=== PATIENT | male | born 1960 | race Caucasian/White ===

== ENCOUNTER 2023-11-22 10:00 | Outpatient (AMB) | payer OTHER, SELFPAY ==
--- NOTE | 2023-11-22 10:20 | MHC.OFFVIS ---
Intake Vital Signs 11/22/23 10:27 Height 5 ft 9 in Weight 195 lb 2 oz BMI 28.8 BP 111/70 Blood Pressure Location Lt brachial Position Sitting Respiration 18 Pulse 73 Pulse Source Pulse Oximeter Pulse Oximetry (%) 96 Oxygen Delivery Method Room Air Intake Visit Reasons: Chronic midline low back pain w/bilateral sciatica Allergies No Known Allergies Allergy (Verified 11/22/23 10:17) HPI HPI Comments History of Present Illness Details Wilbert is a very pleasant 63 year old male who presents to the office today, accompanied by his , for evaluation and management of his chronic lower back pain. Patient reports he has been suffering with lower back pain for greater than 4 years. Patient reports midline lumbar back pain, had most recent MRI in 2019. Was told he has lumbar spinal stenosis. Patient endorses pain into the thighs with walking, sitting, standing for extended periods of time. Pain today is rated as 8/10, constant. Patient denies red flag symptoms including new loss of bowel, bladder or saddle anesthesia. Patient has failed conservative therapy including at least one year of chiropractor, HEP, NSAIDs (prescribed Meloxicam), muscle relaxers, topical medications and prescribed opioid medication. He currently takes methocarbamol and percocet as needed. Patient reports that he previously was under treatment at [facility] where he had a couple epidural steroid injections that provided relief of his back and leg pain. the next step was an MRI but he states they never scheduled at. He found there office to be disorganized and he was lost to follow-up. In terms of muscle damage condition is described as aching, stabbing, sharp, shooting, tiring, exhausting. Pain is negatively impacting patient's enjoyment of life, general activity, mood, normal work, recreational activities, sleep and walking. Patient also complaining of chronic pain in his neck, he is status post anterior cervical fusion 2019. He also reports midline thoracic pain, he believes there is an old fracture in that area. Patient states he used to see the chiropractor for thoracic pain, was told that he had a rib that would dislocate and the chiropractor would reduce it. He has not been to the chiropractor recently. [facility] Medical History (Updated 11/22/23 @ 13:31 by Paris Londono, [employer], ASSOCIATE DIRECTOR OF SALES) Sciatica Hypertension COPD (chronic obstructive pulmonary disease) Moderate persistent asthma Cervical stenosis of spine Opioid use Chronic low back pain Surgical History (Updated 11/22/23 @ 11:07 by Paris Londoon, [employer], ASSOCIATE DIRECTOR OF SALES) History of cervical spinal surgery Review of Systems Const All systems reviewed & are unremarkable except as noted in HPI and below Physical Exam Vital Signs: Last Vital Signs Pulse 73 11/22/23 10:27 Resp 18 11/22/23 10:27 BP 111/70 11/22/23 10:27 Pulse Ox 96 11/22/23 10:27 Oxygen Delivery Method Room Air 11/22/23 10:27 BMI result Body Mass Index 28.8 General: awake, alert, oriented. Answers questions appropriately. Fully engaged in examination. Skin: warm, dry, intact HEENT: Normocephalic. Hearing intact. Cardiac: External chest normal in appearance. Respiratory: No cough, audible wheezing or stridor. Abdomen: without gross distension. MS: No obvious swelling or deformities. Able to stand on bilateral tiptoes and bilateral heels.? Able to transition from sit to stand unassisted. Ambulates with bilaterally normal heel strike and toe off BLE strength 5/5 ROM intact, increased pain with forward flexion. Facet loading positive SLR with and without dorsiflexion neg bilaterally Tender to palpation over T6-8 paraspinal muscles Tender to palpation over lumbar paraspinal muscles nontender over PSIS Neurological: Oriented to person, place, time and situation. Thought process intact. No gait abnormalities appreciated. Psychiatric: Appropriate mood and affect. Good judgment and insight. Assessment & Plan Assessment & Plan (1) Post laminectomy syndrome: Code(s): M96.1 - Postlaminectomy syndrome, not elsewhere classified (2) Lumbar spondylosis: Code(s): M47.816 - Spondylosis without myelopathy or radiculopathy, lumbar region (3) Thoracic back pain: Code(s): M54.6 - Pain in thoracic spine (4) Cervical spondylosis: Code(s): M47.812 - Spondylosis without myelopathy or radiculopathy, cervical region (5) Lumbar stenosis with neurogenic claudication: Code(s): M48.062 - Spinal stenosis, lumbar region with neurogenic claudication Bryan Atkins is a very pleasant 63-year-old male who presents the office today for evaluation and management of his chronic lower back pain History, physical exam and provocative testing consistent with lumbar spondylosis/lumbar facet arthropathy. Patient also has known spinal stenosis with neurogenic claudication. Patient has exhausted conservative therapy including chiropractor, home exercise program, nonsteroidal anti-inflammatory medications, topical medications, muscle relaxers and chronic opioid use. X-ray cervical, thoracic and lumbar ordered for evaluation. MRI lumbar spine without contrast to evaluate degree of stenosis given patient's worsening symptoms of neurogenic claudication Continue with nonsteroidal anti-inflammatory medication, muscle relaxers and chronic opioids as prescribed by primary care doctor. Discussed options for treatment including diagnostic interventional testing, epidural steroid injections, peripheral nerve stimulation with Sprint, RFA and more permanent neuromodulation. Pending review of with x-rays, will plan for fluoroscopy guided diagnostic L3-L4 L5 MBBs with local anesthetic. All questions and concerns have been answered and patient agrees with the plan. Follow up after injections and sooner if needed. Orders: Orders XR cervical spine 4V Today M54.2 - Cervicalgia MR lumbar spine wo con Today M48.062 - Spinal stenosis, lumbar region with neurogenic claudication XR thoracic spine 3V Today M54.6 - Pain in thoracic spine XR lumbar spine 4V min Today M47.816 - Spondylosis without myelopathy or radiculopathy, lumbar region Coding Level of Care Code New Pt Level 4 (39067) Diagnoses Post laminectomy syndrome M96.1 Lumbar spondylosis M47.816 Thoracic back pain M54.6 Cervical spondylosis M47.812 Lumbar stenosis with neurogenic claudication M48.062
[2023-11-22 10:27] VITALS: BP 111/70; PULSE 73; RESP 18; O2SAT 96; BMI 28.8
== END 2023-11-22 10:52 | disposition home or self-care (01) ==
PROVIDERS: PCP Family Medicine; Visit Provider Registered Nurse Emergency
DX: M96.1 Postlaminectomy syndrome, not elsewhere classified (principal); M47.816 Spondylosis without myelopathy or radiculopathy, lumbar region; M54.6 Pain in thoracic spine; M47.812 Spondylosis without myelopathy or radiculopathy, cervical region; M48.062 Spinal stenosis, lumbar region with neurogenic claudication
CPT/HCPCS: 99204

== ENCOUNTER 2023-11-22 10:00 | Outpatient (REF) | payer OTHER, SELFPAY ==
--- NOTE | ~2023-11-22 | XR_ITS ---
EXAMINATION: CERVICAL SPINE 3 VIEWS CLINICAL INFORMATION: Cervicalgia. COMPARISON: None. TECHNIQUE: Frontal, odontoid, bilateral oblique and lateral views are obtained. FINDINGS: Vertebral body heights and alignment are normal. There is well-maintained alignment status-post C3-C6 anterior fusion, with intact anterior fixator plate and fixator screws. No hardware failure or loosening is seen. At C6-C7, there is marked degenerative disc disease, with disc space narrowing and accompanying anterior spondylosis. No acute fracture or spondylolisthesis is seen. The posterior elements are intact. There is bilateral neural foraminal narrowing at C3-C4, C5-C6 and C6-C7. There is no prevertebral soft tissue swelling. The dens and C7-T1 interface are normal. XR/XR lumbar spine 4V min IMPRESSION: 1. There is well-maintained alignment status-post C3-C6 anterior fusion. No hardware failure or loosening is seen. 2. At C6-C7, there is marked degenerative disc disease. 3. There is bilateral foraminal narrowing at C3-C4, C5-C6 and C6-C7. EXAMINATION: XR THORACIC SPINE CLINICAL INFORMATION: Thoracic spine pain. COMPARISON: None available. TECHNIQUE: AP and lateral views of the thoracic spine were obtained. FINDINGS: Vertebral body heights are normal. There is a mild thoracic dextroscoliosis. There is mild disc space narrowing extending from T5-T6 through T8-T9. There is mild posterior disc space narrowing at T12-L1, with a 3 mm retrolisthesis. The remaining disc spaces are relatively well-maintained. No acute fracture or spondylolisthesis is seen. This multi-level mild thoracic spondylosis. The posterior elements are intact. The paravertebral soft tissues are unremarkable. IMPRESSION: 1. There is mild degenerative disc disease extending from T5-T6 through T8-T9 and at T12-L1. 2. There is multi-level mild thoracic spondylosis. 3. There is a mild thoracic dextroscoliosis. EXAMINATION: XR LUMBOSACRAL SPINE CLINICAL INFORMATION: Pain. COMPARISON: None TECHNIQUE: AP, bilateral oblique and lateral views of the lumbar spine and lateral view of the lumbosacral junction. FINDINGS: Vertebral body heights and alignment are normal. At L2-L3, there is a 3 mm retrolisthesis. At L5-S1, there is degenerative disc disease, with vacuum phenomenon. No acute fracture or spondylolisthesis is seen. There is multi-level mild lumbar spondylosis. The posterior elements are intact. No spondylolysis defect is seen on the oblique views. There are aortoiliac atherosclerotic calcifications. IMPRESSION: 1. There is mild degenerative disc disease at L2-L3, and moderately severe degenerative disc disease is seen at L5-S1, with vacuum disc phenomenon. 2. There is multi-level mild lumbar spondylosis.
== END 2023-11-22 10:01 | disposition home or self-care (01) ==
LOC: HO.XRAY 10:00
PROVIDERS: PCP Family Medicine; Visit Provider Registered Nurse Emergency
DX: M54.6 Pain in thoracic spine (principal); M47.816 Spondylosis without myelopathy or radiculopathy, lumbar region; M54.2 Cervicalgia
CPT/HCPCS: 72050; 72072; 72110; 99202

== ENCOUNTER 2023-12-12 14:14 | Outpatient (REF) | payer OTHER, SELFPAY ==
--- NOTE | ~2023-12-12 | MR_ITS ---
EXAMINATION: MR LUMBAR SPINE WITHOUT CONTRAST CLINICAL INFORMATION: Chronic low back pain and bilateral leg pain. COMPARISON: Plain films of the lumbar spine 11/22/2023. MRI scan of the lumbar spine 07/04/2021. TECHNIQUE: MRI of the lumbar spine was obtained using routine sequences without contrast. FINDINGS: VERTEBRAL BODIES AND PARASPINAL STRUCTURES: There is a mild retrolisthesis of T12 on L1. There is multilevel narrowing of intervertebral disc height with loss of signal throughout the lumbar spine, relatively sparing L1-L2. There are degenerative endplate contour changes with moderate edematous endplate signal at L5-S1 toward the right and there is a minimal amount of edematous signal in the right L5 pedicle. Overall, marrow signal is homogenous. The study redemonstrates the loss of vertebral body height of T11, unchanged. There is a stable Schmorl's node in superior endplate of T12. The study redemonstrates bilateral renal cysts. The visualized pelvic structures are unremarkable. CONUS MEDULLARIS AND CAUDA EQUINA: Normal, terminating at the level of T12. The lower thoracic spinal cord appears normal. The cauda equina nerve roots and filum terminale appear normal. SPINAL LEVELS: T12-L1: There is a small posterior disc protrusion without significant mass effect on the thecal sac. There is no central stenosis and the neural foramina are patent bilaterally. L1-L2: The facet joints appear normal bilaterally. Disc contour is normal. There is no central stenosis or foraminal narrowing. L2-L3: There is moderate bilateral facet arthropathy with ligamenta flava hypertrophy. There is a diffuse disc bulge with a posterior annular fissure which flattens the ventral thecal sac and which mildly narrows the bilateral subarticular recesses. There is mild central stenosis. There are bilateral foraminal disc protrusions impinging on the exiting L2 nerve roots, more severely on the left. L3-L4: There is moderate bilateral facet arthropathy. There is a posterior disc protrusion with an annular fissure which compresses the thecal sac and which narrows the bilateral subarticular recesses. There is mild to moderate central stenosis. There are right greater than left foraminal disc protrusions; there is impingement on the exiting right L3 nerve root. L4-L5: There is moderate to severe bilateral facet arthropathy with ligamenta flava hypertrophy and facet joint effusions. There is a broad-based posterior disc protrusion with an annular fissure which compresses the thecal sac and which narrows the bilateral subarticular recesses. There is moderate central stenosis. There are bilateral foraminal disc protrusions, more prominent on the right. L5-S1: There is moderate to severe right and moderate left facet arthropathy. There is a central and right-sided disc protrusion with an extruded component extending cephalad behind the body of L5 on the right. There is narrowing of the right subarticular recess and there is impingement on the traversing right S1 nerve root, which has developed since the prior study. There are bilateral inferior foraminal disc protrusions. There is mild central stenosis. MR/MR lumbar spine wo con IMPRESSION: 1. At L5-S1 there is facet arthropathy and there is a central and right-sided disc protrusion/extrusion which narrows the right subarticular recess and impinges on the traversing right S1 nerve root. There is mild central stenosis. 2. At L4-L5 there is facet arthropathy and there is a broad-based posterior disc protrusion. There is narrowing of the bilateral subarticular recesses and there is moderate central stenosis. There are bilateral foraminal disc protrusions, more prominent on the right. 3. At L3-L4 there is facet arthropathy and there is a posterior disc protrusion. There is narrowing of the bilateral subarticular recesses and there is mild to moderate central stenosis. There are right greater than left foraminal disc protrusions with impingement on the exiting right L3 nerve root. 4. At L2-L3 there is facet arthropathy and there is a diffuse disc bulge with a posterior annular fissure. There is narrowing of the subarticular recesses and there is mild central stenosis. There are bilateral foraminal disc protrusions impinging on the exiting L2 nerve roots.
== END 2023-12-12 14:15 | disposition home or self-care (01) ==
LOC: HO.MRI 14:14
PROVIDERS: PCP Family Medicine; Visit Provider Registered Nurse Emergency
DX: M48.062 Spinal stenosis, lumbar region with neurogenic claudication (principal)
CPT/HCPCS: 72148

== ENCOUNTER 2023-12-23 13:40 | Outpatient (AMB) | payer OTHER, SELFPAY ==
[2023-12-23 13:48] VITALS: BP 113/71; PULSE 78; RESP 18; O2SAT 93; BMI 29.0
--- NOTE | 2023-12-23 13:48 | A.OFFVIS_ITS ---
Intake Vital Signs 12/23/23 13:48 Height 5 ft 9 in Weight 196 lb 2 oz BMI 29.0 BP 113/71 Blood Pressure Location Lt brachial Position Sitting Respiration 18 Pulse 78 Pulse Source Pulse Oximeter Pulse Oximetry (%) 93 Oxygen Delivery Method Room Air Intake Visit Reasons: MRI Results - LVM Allergies No Known Allergies Allergy (Verified 12/23/23 13:48) HPI HPI Comments History of Present Illness Details Wilbert is a very pleasant 63-year-old male who presents the office today for follow-up chronic back pain and review of recent MRI. MRI reviewed with patient, results as per below. He reports pain continues despite NSAIDs, chronic opioids and muscle relaxers that are prescribed by his primary care doctor. Pain across the lower back and into both legs worse with standing and walking. States that he has very limited ability to be physically active due to the pain. He has undergone epidural steroid injections in the past, reports that the most recent was approximately 1 year ago with very limited benefit. He denies any red flag symptoms including new loss of bowel, bladder or saddle anesthesia. Prior: Wilbert is a very pleasant 63 year old male who presents to the office today, accompanied by his , for evaluation and management of his chronic lower back pain. Patient reports he has been suffering with lower back pain for greater than 4 years. Patient reports midline lumbar back pain, had most recent MRI in 2019. Was told he has lumbar spinal stenosis. Patient endorses pain into the thighs with walking, sitting, standing for extended periods of time. Pain today is rated as 8/10, constant. Patient denies red flag symptoms including new loss of bowel, bladder or saddle anesthesia. Patient has failed conservative therapy including at least one year of chirop ractor, HEP, NSAIDs (prescribed Meloxicam), muscle relaxers, topical medications and prescribed opioid medication. He currently takes methocarbamol and percocet as needed. Patient reports that he previously was under treatment at [facility] where he had a couple epidural steroid injections that provided relief of his back and leg pain. the next step was an MRI but he states they never scheduled at. He found there office to be disorganized and he was lost to follow-up. In terms of muscle damage condition is described as aching, stabbing, sharp, shooting, tiring, exhausting. Pain is negatively impacting patient's enjoyment of life, general activity, mood, normal work, recreational activities, sleep and walking. Patient also complaining of chronic pain in his neck, he is status post anterior cervical fusion 2019. He also reports midline thoracic pain, he believes there is an old fracture in that area. Patient states he used to see the chiropractor for thoracic pain, was told that he had a rib that would dislocate and the chiropractor would reduce it. He has not been to the chiropractor recently. [facility] Medical History (Updated 11/22/23 @ 13:31 by Paris Londono APRN, [facility]) Sciatica Hypertension COPD (chronic obstructive pulmonary disease) Moderate persistent asthma Cervical stenosis of spine Opioid use Chronic low back pain Surgical History (Updated 11/22/23 @ 11:07 by Paris Londono APRN, [employer]) History of cervical spinal surgery Review of Systems Const All systems reviewed & are unremarkable except as noted in HPI and below Physical Exam Vital Signs: Last Vital Signs Pulse 78 12/23/23 13:48 Resp 18 12/23/23 13:48 BP 113/71 12/23/23 13:48 Pulse Ox 93 12/23/23 13:48 Oxygen Delivery Method Room Air 12/23/23 13:48 BMI result Body Mass Index 29.0 General: awake, alert, oriented. Answers questions appropriately. Fully engaged in examination. Skin: warm, dry, intact HEENT: Normocephalic. Hearing intact. Cardiac: External chest normal in appearance. Respiratory: No cough, audible wheezing or stridor. Abdomen: without gross distension. MS: No obvious swelling or deformities. Able to stand on bilateral tiptoes and bilateral heels.? Able to transition from sit to stand unassisted. Ambulates with bilaterally normal heel strike and toe off BLE strength 5/5 ROM intact, increased pain with forward flexion. Facet loading positive SLR with and without dorsiflexion neg bilaterally Tender to palpation over left T6-8 paraspinal muscles Neurological: Oriented to person, place, time and situation. Thought process intact. Psychiatric: Appropriate mood and affect. Good judgment and insight. Results Reviewed Results Reviewed: 12/12/23: MRI LS FINDINGS: VERTEBRAL BODIES AND PARASPINAL STRUCTURES: There is a mild retrolisthesis of T12 on L1. There is multilevel narrowing of intervertebral disc height with loss of signal throughout the lumbar spine, relatively sparing L1-L2. There are degenerative endplate contour changes with moderate edematous endplate signal at L5-S1 toward the right and there is a minimal amount of edematous signal in the right L5 pedicle. Overall, marrow signal is homogenous. The study redemonstrates the loss of vertebral body height of T11, unchanged. There is a stable Schmorl's node in superior endplate of T12. The study redemonstrates bilateral renal cysts. The visualized pelvic structures are unremarkable. CONUS MEDULLARIS AND CAUDA EQUINA: Normal, terminating at the level of T12. The lower thoracic spinal cord appears normal. The cauda equina nerve roots and filum terminale appear normal. SPINAL LEVELS: T12-L1: There is a small posterior disc protrusion without significant mass effect on the thecal sac. There is no central stenosis and the neural foramina are patent bilaterally. L1-L2: The facet joints appear normal bilaterally. Disc contour is normal. There is no central stenosis or foraminal narrowing. L2-L3: There is moderate bilateral facet arthropathy with ligamenta flava hypertrophy. There is a diffuse disc bulge with a posterior annular fissure which flattens the ventral thecal sac and which mildly narrows the bilateral subarticular recesses. There is mild central stenosis. There are bilateral foraminal disc protrusions impinging on the exiting L2 nerve roots, more severely on the left. L3-L4: There is moderate bilateral facet arthropathy. There is a posterior disc protrusion with an annular fissure which compresses the thecal sac and which narrows the bilateral subarticular recesses. There is mild to moderate central stenosis. There are right greater than left foraminal disc protrusions; there is impingement on the exiting right L3 nerve root. L4-L5: There is moderate to severe bilateral facet arthropathy with ligamenta flava hypertrophy and facet joint effusions. There is a broad-based posterior disc protrusion with an annular fissure which compresses the thecal sac and which narrows the bilateral subarticular recesses. There is moderate central stenosis. There are bilateral foraminal disc protrusions, more prominent on the right. L5-S1: There is moderate to severe right and moderate left facet arthropathy. There is a central and right-sided disc protrusion with an extruded component extending cephalad behind the body of L5 on the right. There is narrowing of the right subarticular recess and there is impingement on the traversing right S1 nerve root, which has developed since the prior study. There are bilateral inferior foraminal disc protrusions. There is mild central stenosis. IMPRESSION: 1. At L5-S1 there is facet arthropathy and there is a central and right-sided disc protrusion/extrusion which narrows the right subarticular recess and impinges on the traversing right S1 nerve root. There is mild central stenosis. 2. At L4-L5 there is facet arthropathy and there is a broad-based posterior disc protrusion. There is narrowing of the bilateral subarticular recesses and there is moderate central stenosis. There are bilateral foraminal disc protrusions, more prominent on the right. 3. At L3-L4 there is facet arthropathy and there is a posterior disc protrusion. There is narrowing of the bilateral subarticular recesses and there is mild to moderate central stenosis. There are right greater than left foraminal disc protrusions with impingement on the exiting right L3 nerve root. 4. At L2-L3 there is facet arthropathy and there is a diffuse disc bulge with a posterior annular fissure. There is narrowing of the subarticular recesses and there is mild central stenosis. There are bilateral foraminal disc protrusions impinging on the exiting L2 nerve roots. 11/22/23 EXAMINATION: CERVICAL SPINE 3 VIEWS FINDINGS: Vertebral body heights and alignment are normal. There is well-maintained alignment status-post C3-C6 anterior fusion, with intact anterior fixator plate and fixator screws. No hardware failure or loosening is seen. At C6-C7, there is marked degenerative disc disease, with disc space narrowing and accompanying anterior spondylosis. No acute fracture or spondylolisthesis is seen. The posterior elements are intact. There is bilateral neural foraminal narrowing at C3-C4, C5-C6 and C6-C7. There is no prevertebral soft tissue swelling. The dens and C7-T1 interface are normal. IMPRESSION: 1. There is well-maintained alignment status-post C3-C6 anterior fusion. No hardware failure or loosening is seen. 2. At C6-C7, there is marked degenerative disc disease. 3. There is bilateral foraminal narrowing at C3-C4, C5-C6 and C6-C7. EXAMINATION: XR THORACIC SPINE FINDINGS: Vertebral body heights are normal. There is a mild thoracic dextroscoliosis. There is mild disc space narrowing extending from T5-T6 through T8-T9. There is mild posterior disc space narrowing at T12-L1, with a 3 mm retrolisthesis. The remaining disc spaces are relatively well-maintained. No acute fracture or spondylolisthesis is seen. This multi-level mild thoracic spondylosis. The posterior elements are intact. The paravertebral soft tissues are unremarkable. IMPRESSION: 1. There is mild degenerative disc disease extending from T5-T6 through T8-T9 and at T12-L1. 2. There is multi-level mild thoracic spondylosis. 3. There is a mild thoracic dextroscoliosis. EXAMINATION: XR LUMBOSACRAL SPINE FINDINGS: Vertebral body heights and alignment are normal. At L2-L3, there is a 3 mm retrolisthesis. At L5-S1, there is degenerative disc disease, with vacuum phenomenon. No acute fracture or spondylolisthesis is seen. There is multi-level mild lumbar spondylosis. The posterior elements are intact. No spondylolysis defect is seen on the oblique views. There are aortoiliac atherosclerotic calcifications. IMPRESSION: 1. There is mild degenerative disc disease at L2-L3, and moderately severe degenerative disc disease is seen at L5-S1, with vacuum disc phenomenon. 2. There is multi-level mild lumbar spondylosis. Assessment & Plan Assessment & Plan (1) Post laminectomy syndrome: Code(s): M96.1 - Postlaminectomy syndrome, not elsewhere classified (2) Lumbar spondylosis: Code(s): M47.816 - Spondylosis without myelopathy or radiculopathy, lumbar region (3) Thoracic back pain: Code(s): M54.6 - Pain in thoracic spine (4) Cervical spondylosis: Code(s): M47.812 - Spondylosis without myelopathy or radiculopathy, cervical region (5) Lumbar stenosis with neurogenic claudication: Code(s): M48.062 - Spinal stenosis, lumbar region with neurogenic claudication Plan Wilbert is a very pleasant 63-year-old male who presents the office today for follow-up chronic back pain History, physical exam and provocative testing consistent with lumbar spondylosis, post-laminectomy syndrome. Patient also has known spinal stenosis with neurogenic claudication. Patient has exhausted conservative therapy including chiropractor, home exercise program, nonsteroidal anti-inflammatory medications, topical medications, muscle relaxers and chronic opioid use. Continue with nonsteroidal anti-inflammatory medication, muscle relaxers and chronic opioids as prescribed by primary care doctor. Discussed options for treatment including diagnostic interventional testing, epidural steroid injections, peripheral nerve stimulation with Sprint, RFA and more permanent neuromodulation. Patient has attempted epidural steroid injections in the past with limited be nefit. He is interested in spinal cord stimulation trial. [facility] Pamphlet for [employer] provided. Order placed for [facility] spinal cord stimulation trial with anesthesia, patient where he would get call to schedule after we receive clearance from [employer]. He will expect a call from [employer] 2 complete mental health evaluation. All questions and concerns have been answered and patient agrees with the plan. Follow up after procedure, sooner if needed. Coding Level of Care Code Est Pt Level 3 (53049) Diagnoses Post laminectomy syndrome M96.1 Lumbar spondylosis M47.816 Thoracic back pain M54.6 Cervical spondylosis M47.812 Lumbar stenosis with neurogenic claudication M48.062
== END 2023-12-23 14:29 | disposition home or self-care (01) ==
PROVIDERS: PCP Family Medicine; Visit Provider Registered Nurse Emergency
DX: M96.1 Postlaminectomy syndrome, not elsewhere classified (principal); M47.816 Spondylosis without myelopathy or radiculopathy, lumbar region; M54.6 Pain in thoracic spine; M47.812 Spondylosis without myelopathy or radiculopathy, cervical region; M48.062 Spinal stenosis, lumbar region with neurogenic claudication
CPT/HCPCS: 99213

== ENCOUNTER → 2023-12-23 13:40 | Outpatient (BNVA) | payer OTHER, SELFPAY | PROVIDERS: PCP Family Medicine; Visit Provider Registered Nurse Emergency ==